=== PATIENT | female | born 1965 | race Caucasian/White ===

== ENCOUNTER 2016-05-14 13:58 | Emergency (ER) | payer OTHER ==
[2016-05-14 14:11] VITALS: BP 121/59; PULSE 60; RESP 16; TEMP 96.9
--- NOTE | 2016-05-14 14:39 | ED ---
General Adult HPI - General Chief complaint: Extremity Injury, Lower Stated complaint: Leg Pain Time Seen by Provider: 05/14/16 14:27 Source: patient, RN notes reviewed Mode of arrival: ambulatory Limitations: no limitations - History of Present Illness Initial comments: This is a 51-year-old female who presents with right knee pain and right hip pain 6 days. Patient denies any fall or known injury to the right hip or right knee. Patient states the pain is worse with walking. Patient states resting makes it better. Patient states the pain starts in the right knee and radiates to the right hip. Patient is able to ambulate. Patient denies any numbness/tingling or weakness. Patient denies any recent fever, chills, shortness breath, chest pain, abdominal pain, nausea/vomiting/diarrhea, back pain, hematuria, headache, or visual changes, or any other complaints. - Related Data Home Medications Medication Instructions Recorded Confirmed clonazePAM [KlonoPIN] 0.5 mg PO DAILY 07/30/14 06/28/15 [place] Carbonate 900 mg PO DAILY 06/28/15 06/28/15 Previous Rx's Medication Instructions Recorded HYDROcodone/APAP 10-325MG [[place] 1 each PO Q12H PRN #8 tab 07/31/14 10] Ibuprofen [Motrin] 800 mg PO Q8HR PRN #30 tab 06/28/15 Permethrin 5% Cream [Elimite] 1 applic TOPICAL ONCE 1 Days 06/28/15 predniSONE 20 mg PO BID #8 tab 06/28/15 Allergies Allergy/AdvReac Type Severity Reaction Status Date / Time No Known Allergies Allergy Verified 05/14/16 14:11 Review of Systems ROS Statement: Those systems with pertinent positive or pertinent negative responses have been documented in the HPI. ROS Other: All systems not noted in ROS Statement are negative. Past Medical History Past Medical History: Asthma Additional Past Medical History / Comment(s): chronic back and leg pain, head pain, recent falls. Hepatitis C no treatment but it is dormant. History of Any Multi-Drug Resistant Organisms: None Reported Past Surgical History: Section, Orthopedic Surgery Past Anesthesia/Blood Transfusion Reactions: No Reported Reaction Past Psychological History: Bipolar, Schizophrenia Smoking Status: Current every day smoker Past Alcohol Use History: None Reported Past Drug Use History: Marijuana General Exam - General Exam Comments Initial Comments: General: The patient is awake and alert, in no distress, and does not appear acutely ill. Neck: The neck is supple, there is no tenderness or JVD. Cardiovascular: There is a regular rate and rhythm. No murmur, rub or gallop is appreciated. Respiratory: Lungs are clear to auscultation, respirations are non-labored, breath sounds are equal. No wheezes, stridor, rales, or rhonchi. Musculoskeletal: There is tenderness to palpation over the distal right thigh just superior to the right knee. There is no swelling, erythema warmth or ecchymosis. There is no tenderness to the right hip with palpation or with range of motion. Patient is able to ambulate without difficulty. No laxity with anterior/posterior drawer or varus or valgus stress. Full range of motion , strength 5/5 and Sensation intact. Posterior tibial pulses 2+ bilaterally. Capillary refill is normal at less than 2 seconds. No calf tenderness bilaterally. Negative Homans sign. Neurological: A&O x 3. CN II-XII intact, There are no obvious motor or sensory deficits. Coordination appears grossly intact. Speech is normal. Skin: Skin is warm and dry and no rashes or lesions are noted. Psychiatric: Normal mood and affect. Limitations: no limitations Course Vital Signs 05/14/16 14:08 Temperature 96.9 F L Pulse Rate 60 Respiratory 16 Rate Blood Pressure 121/59 O2 Sat by Pulse 97 Oximetry Medical Decision Making - Medical Decision Making This is a 51-year-old female who presents with right knee pain 6 days. On physical exam there is tenderness to palpation over the distal right thigh just anterior to the right knee. There is no swelling, erythema, warmth or ecchymosis to the area. Patient is able to ambulate without difficulty. Patient is neurovascularly intact. Strength is 5/5 and sensation is intact. No calf tenderness. Negative Homans sign. No tenderness of the right hip with palpation or with range of motion. X-rays of the right hip and right knee were done and reviewed showing: X-ray knee right: No acute fracture or dislocation. X-ray hip right with AP pelvis: #1 there is no acute fracture or dislocation of the pelvis or right hip. Reports read by Dr. Flores. I did discuss before x-rays were taken that this could be a musculoskeletal pain or arthiritis. Patient agreed to x-rays to rule out bony in etiology, but while waiting for x-ray results patient eloped. Disposition Clinical Impression: Right anterior knee pain Disposition: Left Against Medical Advice Condition: Good Referrals: Kevon Coronel MD [Primary Care Provider] - 1-2 days
--- NOTE | 2016-05-14 14:52 | XR ---
EXAMINATION TYPE: XR knee complete RT DATE OF EXAM: 05/14/2016 2:47 PM COMPARISON: NONE HISTORY: Pain FINDINGS: Joint spaces are preserved. Osseous structures are intact. No acute fracture seen. Postsurgical vitaliy nges noted. IMPRESSION: 1. No acute fracture or dislocation.
--- NOTE | 2016-05-14 15:24 | XR ---
EXAMINATION TYPE: XR Hip RT and AP Pelvis DATE OF EXAM: 05/14/2016 2:47 PM COMPARISON: NONE HISTORY: Pain TECHNIQUE: A single AP view of the pelvis is obtained. Two views of the right hip are obtained. FINDINGS: There is no acute fracture/dislocation evident in the pelvis. The hip and sacroiliac join ts appear symmetric and unremarkable. The overlying soft tissue appears unremarkable. Osteitis pubis condensans noted. Two views of right hip show no acute fracture or dislocation. No focal lytic or sclerotic lesion see n in the proximal right femur. The overlying soft tissue is unremarkable. IMPRESSION: 1. There is no acute fracture or dislocation in the pelvis or right hip.
== END 2016-05-14 15:19 | disposition left against medical advice (07) ==
LOC: EC 13:58
DX: M25.561 Pain in right knee (principal); F20.9 Schizophrenia, unspecified; F31.9 Bipolar disorder, unspecified; Z79.899 Other long term (current) drug therapy; F17.200 Nicotine dependence, unspecified, uncomplicated
CPT/HCPCS: 73502; 99283

== ENCOUNTER → 2017-03-20 | Outpatient (CLI) | payer OTHER ==
--- NOTE | 2017-03-21 09:47 | MM ---
Reason for exam: screening (asymptomatic). Last mammogram was performed 1 year and 11 months ago. History: Patient is postmenopausal. Benign excisional biopsy of the left breast, 2006. Physical Findings: A clinical breast exam by your physician is recommended on an annual basis and results should be correlated with mammographic findings. MG Screening Mammo w CAD Bilateral CC and MLO view(s) were taken. Prior study comparison: April 29, 2015, bilateral MG screening mammo w CAD. May 08, 2013, bilateral digital screening mammo w/CAD. There are scattered fibroglandular densities. Finding: There are typically benign round, diffuse/scattered and regional calcifications in both breasts, greaster in the right breast. There is no discrete abnormality. ASSESSMENT: Benign, BI-RAD 2 RECOMMENDATION: Routine screening mammogram of both breasts in 1 year.
== END | disposition home or self-care (01) ==
LOC: RADMAMWWP 16:20
PROVIDERS: ATTEND Internal Medicine
DX: Z12.31 Encounter for screening mammogram for malignant neoplasm of breast (principal)

== ENCOUNTER 2017-11-15 14:45 | Emergency (ER) | payer OTHER ==
[2017-11-15] MEDS ORDERED: MECLIZINE 25 MG TAB PO STA (15:14)
--- NOTE | 2017-11-15 15:16 | ED ---
General Adult HPI - General Chief complaint: Dizziness Stated complaint: Lightheaded Time Seen by Provider: 11/15/17 15:00 Source: patient, RN notes reviewed Mode of arrival: wheelchair Limitations: no limitations - History of Present Illness Initial comments: This is a 52-year-old female presents emergency Department complaining that ever since she went swimming in the [place] yesterday she has been off balance. Patient states if she sits still she feels better however if she moves her head at all she gets very dizzy and feels as though she needs to grab onto something to walk. Patient denies any headache patient denies numbness weakness. Patient denies any nausea or vomiting. Patient denies any ear pain or drainage ringing in the ears or deafness. Patient denies any chest pain palpitations difficulty breathing shortness of breath. Patient does states she is a smoker however. Patient denies abdominal pain. Patient denies any nausea vomiting but has had diarrhea recently. Patient denies any dysuria hematuria urinary frequency. Patient denies any recent fever chills or cough. Patient denies any near syncopal feeling. Patient denies any falls. - Related Data Home Medications Medication Instructions Recorded Confirmed Albuterol Inhaler [Ventolin Hfa 2 puff INHALATION RT-Q6H PRN 11/15/17 11/15/17 Inhaler] Beclomethasone Dipropionate [Qvar 1 puff INHALATION RT-BID 11/15/17 11/15/17 40 mcg] traMADol HCL [Ultram] 50 mg PO BID PRN 11/15/17 11/15/17 Previous Rx's Medication Instructions Recorded Meclizine [Antivert] 25 mg PO TID #20 tab 11/15/17 Allergies Allergy/AdvReac Type Severity Reaction Status Date / Time No Known Allergies Allergy Verified 11/15/17 15:09 Review of Systems ROS Statement: Those systems with pertinent positive or pertinent negative responses have been documented in the HPI. ROS Other: All systems not noted in ROS Statement are negative. Past Medical History Past Medical History: Asthma Additional Past Medical History / Comment(s): chronic back and leg pain, head pain, recent falls. Hepatitis C no treatment but it is dormant. History of Any Multi-Drug Resistant Organisms: None Reported Past Surgical History: Section, Cholecystectomy, Orthopedic Surgery Past Anesthesia/Blood Transfusion Reactions: No Reported Reaction Past Psychological History: Bipolar, Depression, Schizophrenia Smoking Status: Current every day smoker Past Alcohol Use History: None Reported Past Drug Use History: Marijuana General Exam - General Exam Comments Initial Comments: GENERAL: Patient is well-developed and well-nourished. Patient is nontoxic and well- hydrated and is in mild distress. ENT: Neck is soft and supple. No significant lymphadenopathy is noted. Oropharynx is clear. Moist mucous membranes. Neck has full range of motion without eliciting any pain. EYES: The sclera were anicteric and conjunctiva were pink and moist. Extraocular movements were intact and pupils were equal round and reactive to light. Eyelids were unremarkable. PULMONARY: Unlabored respirations. Good breath sounds bilaterally. No audible rales rhonchi or wheezing was noted. CARDIOVASCULAR: There is a regular rate and rhythm without any murmurs gallops or rubs. ABDOMEN: Soft and nontender with normal bowel sounds. No palpable organomegaly was noted. There is no palpable pulsatile mass. SKIN: Skin is clear with no lesions or rashes and otherwise unremarkable. NEUROLOGIC: Patient is alert and oriented x3. Cranial nerves II through XII are grossly intact. Motor and sensory are also intact. Normal speech, volume and content. Symmetrical smile. Finger to nose testing bilaterally was normal. Patient had no obvious nystagmus in any direction. Movement of the patient's head however reproduced her symptoms of dizziness MUSCULOSKELETAL: Normal extremities with adequate strength and full range of motion. No lower extremity swelling or edema. No calf tenderness. LYMPHATICS: No significant lymphadenopathy is noted PSYCHIATRIC: Normal psychiatric evaluation. Normal interpersonal interactions appears functionally intact in deals appropriately with others. No signs of depression. No signs of anxiety. Limitations: no limitations Course Vital Signs 11/15/17 11/15/17 15:02 15:03 Temperature 97 F L Pulse Rate 52 L Respiratory 18 16 Rate Blood Pressure 112/60 O2 Sat by Pulse 98 Oximetry Medical Decision Making - Medical Decision Making EKG shows sinus bradycardia 50 bpm PA interval is 194 QRS is 74 QT interval is 444 QTC is 404. Patient's EKG shows no ST segment elevation or depression or T wave abnormalities are noted. Computed tomography scan of the brain shows no acute abnormality. Chest x-ray shows no acute normalities. Patient is given Antivert in the emergency department and was feeling a little better on discharge. Patient states the symptoms continue she'll follow-up with her primary medical care doctor. - Lab Data Result diagrams: 11/15/17 15:45 11/15/17 15:45 Lab Results 11/15/17 11/15/17 11/15/17 Range/Units 15:45 15:45 15:45 WBC 9.1 (3.8-10.6) k/uL RBC 4.41 (3.80-5.40) m/uL Hgb 13.7 (11.4-16.0) gm/dL Hct 40.9 (34.0-46.0) % MCV 92.8 (80.0-100.0) fL MCH 31.0 (25.0-35.0) pg MCHC 33.4 (31.0-37.0) g/dL RDW 13.7 (11.5-15.5) % Plt Count 248 (150-450) k/uL Neutrophils % 63 % Lymphocytes % 29 % Monocytes % 5 % Eosinophils % 2 % Basophils % 0 % Neutrophils # 5.7 (1.3-7.7) k/uL Lymphocytes # 2.7 (1.0-4.8) k/uL Monocytes # 0.4 (0-1.0) k/uL Eosinophils # 0.1 (0-0.7) k/uL Basophils # 0.0 (0-0.2) k/uL PT (9.0-12.0) sec INR (<1.2) APTT (22.0-30.0) sec Sodium 139 (137-145) mmol/L Potassium 3.8 (3.5-5.1) mmol/L Chloride 104 (98-107) mmol/L Carbon Dioxide 27 (22-30) mmol/L Anion Gap 8 mmol/L BUN 16 (7-17) mg/dL Creatinine 0.76 (0.52-1.04) mg/dL Est GFR (CKD-EPI)AfAm >90 (>60 ml/min/1.73 sqM) Est GFR (CKD-EPI)NonAf >90 (>60 ml/min/1.73 sqM) Glucose 106 H (74-99) mg/dL Calcium 8.8 (8.4-10.2) mg/dL Magnesium 1.8 (1.6-2.3) mg/dL Total Bilirubin 0.3 (0.2-1.3) mg/dL AST 13 L (14-36) U/L ALT 27 (9-52) U/L Alkaline Phosphatase 65 (38-126) U/L Total Creatine Kinase 49 (30-135) U/L CK-MB (CK-2) 0.6 (0.0-2.4) ng/mL CK-MB (CK-2) Rel Index 1.2 Troponin I <0.012 (0.000-0.034) ng/mL Total Protein 6.0 L (6.3-8.2) g/dL Albumin 3.6 (3.5-5.0) g/dL 11/15/17 Range/Units 15:45 WBC (3.8-10.6) k/uL RBC (3.80-5.40) m/uL Hgb (11.4-16.0) gm/dL Hct (34.0-46.0) % MCV (80.0-100.0) fL MCH (25.0-35.0) pg MCHC (31.0-37.0) g/dL RDW (11.5-15.5) % Plt Count (150-450) k/uL Neutrophils % % Lymphocytes % % Monocytes % % Eosinophils % % Basophils % % Neutrophils # (1.3-7.7) k/uL Lymphocytes # (1.0-4.8) k/uL Monocytes # (0-1.0) k/uL Eosinophils # (0-0.7) k/uL Basophils # (0-0.2) k/uL PT 10.0 (9.0-12.0) sec INR 1.0 (<1.2) APTT 23.5 (22.0-30.0) sec Sodium (137-145) mmol/L Potassium (3.5-5.1) mmol/L Chloride (98-107) mmol/L Carbon Dioxide (22-30) mmol/L Anion Gap mmol/L BUN (7-17) mg/dL Creatinine (0.52-1.04) mg/dL Est GFR (CKD-EPI)AfAm (>60 ml/min/1.73 sqM) Est GFR (CKD-EPI)NonAf (>60 ml/min/1.73 sqM) Glucose (74-99) mg/dL Calcium (8.4-10.2) mg/dL Magnesium (1.6-2.3) mg/dL Total Bilirubin (0.2-1.3) mg/dL AST (14-36) U/L ALT (9-52) U/L Alkaline Phosphatase (38-126) U/L Total Creatine Kinase (30-135) U/L CK-MB (CK-2) (0.0-2.4) ng/mL CK-MB (CK-2) Rel Index Troponin I (0.000-0.034) ng/mL Total Protein (6.3-8.2) g/dL Albumin (3.5-5.0) g/dL Disposition Clinical Impression: Vertigo Disposition: HOME SELF-CARE Condition: Good Instructions: Vertigo (ED) Prescriptions: Meclizine [Antivert] 25 mg PO TID #20 tab Is patient prescribed a controlled substance at d/c from ED?: No Referrals: Levi Cooley MD [Primary Care Provider] - 1-2 days Time of Disposition: 16:43
[2017-11-15 15:57] LABS: Basophils % (A) 0 %; Eosinophils # (A) 0.1 k/uL (0-0.7); Eosinophils % (A) 2 %; HCT 40.9 % (34.0-46.0); HGB 13.7 gm/dL (11.4-16.0); Lymphocytes # (A) 2.7 k/uL (1.0-4.8); Lymphocytes % (A) 29 %; MCHC 33.4 g/dL (31.0-37.0); MCV 92.8 fL (80.0-100.0); Mean Platelet Volume 7.7; Monocytes # (A) 0.4 k/uL (0-1.0); Monocytes % (A) 5 %; Neutrophils # (A) 5.7 k/uL (1.3-7.7); Neutrophils % (A) 63 %; Platelet Count 248 k/uL (150-450); RBC 4.41 m/uL (3.80-5.40); RDW 13.7 % (11.5-15.5); WBC 9.1 k/uL (3.8-10.6)
[2017-11-15 16:07] LABS: ALT 27 U/L (9-52); AST 13 U/L (14-36); Albumin 3.6 g/dL (3.5-5.0); Alkaline Phosphatase 65 U/L (38-126); Anion Gap 8 mmol/L; Blood Urea Nitrogen 16 mg/dL (7-17); Calcium 8.8 mg/dL (8.4-10.2); Carbon Dioxide 27 mmol/L (22-30); Chloride 104 mmol/L (98-107); Glucose 106 mg/dL (74-99); Magnesium 1.8 mg/dL (1.6-2.3); Potassium 3.8 mmol/L (3.5-5.1); Sodium 139 mmol/L (137-145); Total Bilirubin 0.3 mg/dL (0.2-1.3)
[2017-11-15 16:09] LABS: Partial Thromboplastin Time 23.5 sec (22.0-30.0)
--- NOTE | 2017-11-15 16:13 | CT ---
EXAMINATION TYPE: CT brain wo con DATE OF EXAM: 11/15/2017 COMPARISON: 07/01/2014 HISTORY: 52-year-old female Dizziness and fatigue x2 days. TECHNIQUE: Examination was done in axial plane without intravenous contrast. Coronal and sagittal r econstructions performed. CT DLP: 1129 mGycm Automated exposure control for dose reduction was used. FINDINGS: There is no evidence of acute intracranial hemorrhage, acute ischemic changes, mass, mass-effect, or extra-axial fluid collection. There is no effacement of cerebral sulci or basal subarachnoid cister ns. There is no hydrocephalus. There is no midline shift. Scott-white matter distinction is preserv ed. Paranasal sinuses and mastoid air cells are well pneumatized. Orbits and globes are intact. Slight ri ghtward nasal septal deviation. IMPRESSION: No acute intracranial abnormality seen.
--- NOTE | 2017-11-15 16:15 | XR ---
EXAMINATION TYPE: XR chest 2V DATE OF EXAM: 11/15/2017 COMPARISON: 06/28/2015 HISTORY: 52-year-old female with dizziness and chest pain TECHNIQUE: Frontal and lateral views FINDINGS: Heart normal size. Aorta and pulmonary vasculature within normal limits. Mild central peribronchial c uffing. No consolidation or pleural effusion. IMPRESSION: Mild central peribronchial cuffing could represent bronchitis or asthma. Otherwise, no acute process seen.
[2017-11-15 16:18] LABS: Creatine Kinase 49 U/L (30-135)
[2017-11-15 16:31] LABS: Creatine Kinase MB 0.6 ng/mL (0.0-2.4); Troponin I <0.012 ng/mL (0.000-0.034)
[2017-11-15 16:59] VITALS: BP 100/63; PULSE 57; RESP 18; TEMP 97.6
== END 2017-11-15 16:59 | disposition home or self-care (01) ==
LOC: EC 14:45
DX: R42 Dizziness and giddiness (principal); J45.909 Unspecified asthma, uncomplicated; F17.200 Nicotine dependence, unspecified, uncomplicated; Z79.51 Long term (current) use of inhaled steroids
CPT/HCPCS: 36415; 70450; 71046; 80053; 82550; 82553; 83735; 84484; 85025; 85610; 85730; 93005; 99284

== ENCOUNTER → 2018-06-24 | Outpatient (CLI) | payer OTHER ==
[2018-06-24 12:26] LABS: HCT 45.3 % (34.0-46.0); HGB 14.2 gm/dL (11.4-16.0); MCHC 31.4 g/dL (31.0-37.0); MCV 95.4 fL (80.0-100.0); Mean Platelet Volume 7.4; Platelet Count 269 k/uL (150-450); RBC 4.75 m/uL (3.80-5.40); RDW 13.8 % (11.5-15.5)
[2018-06-24 18:47] LABS: Albumin 4.1 g/dL (3.80-4.90); Albumin/Globulin Ratio 2.05 (1.60-3.17); Anion Gap 5.8 mmol/L (4.00-12.00); Carbon Dioxide 27.2 mmol/L (21.6-31.8); LDL Cholesterol,Calculated 108.6 mg/dL (0.0-131.0); Potassium 4.3 mmol/L (3.5-5.5); Total Bilirubin 0.3 mg/dL (0.2-1.2); Total Protein 6.1 g/dL (6.2-8.2); VLDL Calculation 22.4 mg/dL (5.00-40.00)
[2018-06-24 20:20] LABS: HIV 1 AB Non-Reactive (Non-Reactive); HIV AB P24 Non-Reactive (Non-Reactive); HIV P24 AG Non-Reactive (Non-Reactive)
== END | disposition home or self-care (01) ==
LOC: LABWHC1 11:19
PROVIDERS: ATTEND Internal Medicine
DX: E78.00 Pure hypercholesterolemia, unspecified (principal); F41.8 Other specified anxiety disorders; Z20.2 Contact with and (suspected) exposure to infections with a predominantly sexual mode of transmission
CPT/HCPCS: 36415; 80053; 80061; 84443; 85027; 87390

== ENCOUNTER → 2018-06-24 | Outpatient (CLI) | payer OTHER ==
--- NOTE | 2018-06-25 10:08 | MM ---
Reason for exam: screening (asymptomatic). Last mammogram was performed 1 year and 3 months ago. History: Patient is postmenopausal. Benign excisional biopsy of the left breast, 2006. Physical Findings: A clinical breast exam by your physician is recommended on an annual basis and results should be correlated with mammographic findings. MG Screening Mammo w CAD Bilateral CC and MLO view(s) were taken. Prior study comparison: March 20, 2017, bilateral MG screening mammo w CAD. April 29, 2015, bilateral MG screening mammo w CAD. There are scattered fibroglandular densities. Stable benign calcifications. There is no discrete abnormality. No significant changes when compared with prior studies. ASSESSMENT: Benign, BI-RAD 2 RECOMMENDATION: Routine screening mammogram of both breasts in 1 year.
== END ==
LOC: RADMAMWWP 11:48
PROVIDERS: ATTEND Internal Medicine
DX: Z12.31 Encounter for screening mammogram for malignant neoplasm of breast (principal)
CPT/HCPCS: 77067